=== PATIENT | female | born 1980 | race Hispanic/Latino ===

== ENCOUNTER 2021-04-08 11:51 | Emergency (ER) | payer OTHER ==
[~2021-04-08] VITALS: Ht 157.5 cm; Wt 117.9 kg
[~2021-04-08 11:51] MED LIST: METF-444 PO
[2021-04-08 11:53] VITALS: BP 119/71
[2021-04-08] MEDS ORDERED: CLIN300C10 PO (13:51)
[2021-04-08] MEDS ORDERED: CLINDAMYCIN 150 MG CAP PO ONE (14:00)
[2021-04-08 14:10] VITALS: BP 121/77
== END 2021-04-08 14:08 | disposition home or self-care (01) ==
LOC: EDH 11:51
DX: L03.116 Cellulitis of left lower limb (principal); E11.621 Type 2 diabetes mellitus with foot ulcer; L97.523 Non-pressure chronic ulcer of other part of left foot with necrosis of muscle; Z79.84 Long term (current) use of oral hypoglycemic drugs; Z89.412 Acquired absence of left great toe

== ENCOUNTER 2022-12-13 18:13 | Emergency (ER) | payer BC ==
[~2022-12-13] VITALS: Ht 157.5 cm; Wt 119.7 kg
[~2022-12-13 18:13] MED LIST changes: +CLIN-141 PO
[2022-12-13 18:24] VITALS: BP 130/79
[2022-12-13 19:14] LABS: BASOPHILS % (AUTO) 0.7 % (0.0-5.0); EOSINOPHILS % (AUTO) 3.2 % (0.0-8.0); HEMATOCRIT 45.9 % (36-48); LYMPHOCYTES % (AUTO) 23.3 % (21.0-51.0); MEAN CORPUSCULAR HEMOGLOBIN 25.4 pg (27.0-33.0); MEAN CORPUSCULAR HGB CONC 30.9 g/dL (32.0-36.0); MEAN CORPUSCULAR VOLUME 82.1 fL (79-99); MONOCYTES % (AUTO) 6.7 % (3.0-13.0); NEUTROPHILS % (AUTO) 65.5 % (40.0-77.0); PLATELET COUNT (AUTO) 277 K/uL (130-400); RED BLOOD CELL COUNT(AUTO) 5.59 MIL/uL (4.00-5.50); RED CELL DISTRIBUTION WIDTH 15.1 % (11.0-15.5); WHITE BLOOD COUNT (AUTO) 9.5 K/uL (4.8-10.8)
[2022-12-13 19:30] LABS: ALBUMIN 3.6 g/dL (3.5-5.0); CREATININE 1.1 mg/dL (0.5-1.5); POTASSIUM 4.3 mmol/L (3.5-5.1); TOTAL PROTEIN, SERUM 7.9 g/dL (6.0-8.3)
== END 2022-12-13 19:59 | disposition left against medical advice (07) ==
LOC: EDH 18:13
DX: R73.9 Hyperglycemia, unspecified (principal); Z53.21 Procedure and treatment not carried out due to patient leaving prior to being seen by health care provider
CPT/HCPCS: 36415; 73660; 80053; 85025; 99281